=== PATIENT | male | born 1985 ===

== ENCOUNTER 2021-04-05 08:56 | Outpatient (CLI) | payer BC ==
[2021-04-05 09:19] LABS: Basophils % (Auto) 0.7 % (0.0-1.8); Eosinophils # (Auto) 0.2 K/mm3 (0.0-0.4); Eosinophils % (Auto) 3.5 % (0.0-4.3); Hematocrit 43.8 % (35.5-45.6); Hemoglobin 15.5 gm/dl (11.8-15.2); Lymphocytes # (Auto) 2.2 K/mm3 (1.2-5.4); Lymphocytes % (Auto) 31.2 % (13.4-35.0); Mean Corpuscular HGB Conc 36 % (32-34); Mean Corpuscular Volume 86 fl (84-94); Monocytes # (Auto) 0.5 K/mm3 (0.0-0.8); Monocytes % (Auto) 7.6 % (0.0-7.3); Platelet Count 151 K/mm3 (140-440); Red Cell Distribution Width 13.6 % (13.2-15.2)
[2021-04-05 09:47] LABS: Chol/HDL Ratio 3.81 %
--- NOTE | 2021-04-05 09:55 | XRay Report ---
RIGHT HUMERUS 2 VIEW(S) INDICATION / CLINICAL INFORMATION: PAIN IN RIGHT SHOULDER COMPARISON: None available. FINDINGS: BONES / JOINT(S): There is an intramedullary curt spanning the right humerus. There is a healed fractu re of the mid humerus with expected cortical thickening. No acute fracture. SOFT TISSUES: No significant abnormality. ADDITIONAL FINDINGS: None. Signer Name: Mg Enriquez MD Signed: 04/05/2021 9:50 AM Workstation Name: [email or web address]
== END 2021-04-05 08:57 | disposition home or self-care (01) ==
LOC: XRAY 08:56
PROVIDERS: ATTEND Internal Medicine
DX: Z00.00 Encounter for general adult medical examination without abnormal findings (principal); M25.511 Pain in right shoulder; E78.5 Hyperlipidemia, unspecified
CPT/HCPCS: 36415; 80061; 85025